=== PATIENT | male | born 1970 | race Two or more races ===

== ENCOUNTER 2017-12-28 21:41 | Emergency (ER) | payer OTHER ==
[~2017-12-28] VITALS: Ht 170.2 cm; Wt 90.4 kg
[~2017-12-28 21:41] MED LIST: METF500T5
[2017-12-29] MEDS ORDERED: KETOROLAC TROMETH 60MG/2ML VIAL IM ONE (02:30)
[2017-12-29] MEDS ORDERED: methylPREDNISolone SOD SUCC 125 MG/2 ML VL IM ONE (02:30)
[2017-12-29 02:40] VITALS: BP 158/100
== END 2017-12-29 02:47 | disposition home or self-care (01) ==
LOC: ER 21:45
DX: M54.16 Radiculopathy, lumbar region (principal); F17.210 Nicotine dependence, cigarettes, uncomplicated
CPT/HCPCS: 96372; 99284; J1885; J2930; 82962

== ENCOUNTER 2018-02-17 23:31 | Emergency (ER) | payer OTHER ==
[~2018-02-17] VITALS: Ht 170.2 cm; Wt 90.7 kg
[2018-02-17 23:46] VITALS: BP 171/74
== END 2018-02-18 00:23 | disposition left against medical advice (07) ==
LOC: ER 23:31
DX: S61.210A Laceration without foreign body of right index finger without damage to nail, initial encounter (principal); Z53.21 Procedure and treatment not carried out due to patient leaving prior to being seen by health care provider; W45.8XXA Other foreign body or object entering through skin, initial encounter; Y93.89 Activity, other specified; Y92.89 Other specified places as the place of occurrence of the external cause; Y99.8 Other external cause status